=== PATIENT | female | born 1980 | race Caucasian/White ===

== ENCOUNTER 2016-12-01 22:05 | Emergency (ER) | payer MEDICAID ==
[~2016-12-01] VITALS: Ht 182.9 cm; Wt 68.0 kg
[~2016-12-01 22:05] MED LIST: ACETAMINOPHEN-O1 TAB PO; CLINDAMYCIN HC300 MG PO; DILAUDID4 MG PO; ESCITALOPRAM20 MG PO; FERROUS SULFAT200 M1 PO; GABAPENTIN800 MG PO; OMEPRAZOLE40 MG PO; OMNICEF 300 MG300 MG PO; PHARMASSURE1000 MCG PO; VALIUM 2MG TABLE2 MG PO; VENTOLIN H0.09 MG/Ac IH
[2016-12-01] MEDS ORDERED: PROMETHAZINE HC25 M1 PO (22:27)
--- NOTE | 2016-12-01 23:02 | Emergency Room Report ---
History of Present Illness Time Seen by [id number] Presenting Problem in Triage Pt arrived:Walked Presenting Problem:PT COMPLAINING OF VOMITTING. PT STATES THAT SHE IS WEAK AND CAN'T EAT. PT STATES SHE WAS SEEN AT ED ON 11/26/16 AND GIVEN PHENERGAN AND HAS BEEN TAKING IT. PT STATES SHE HAS NOT SEEN HER PCP SINCE SHE HAS BEEN IN ED. 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 N Clinical Suspician of Infection? N Mental Status: 1 - Regular (Normal Baseline) Sepsis Risk:Low Sepsis Risk Have you (or family members/close friends) recently traveled outside the [place]? N If Yes, where/when: Have you had exposure to infectious disease within the past month? N TB? Other? Specify: Source patient, RN notes reviewed, family, old records Exam Limitations no limitations Comment pt having unusual episodes of dizzyness and stagering at times mostly with mov and standing over the last few weeks - no chest pain or palpatations Cardiac Chest Pain Chest pain indicative of cardiac No Timing/Duration this evening Severity moderate ALLERGIES Coded Allergies: No Known Allergies (12/01/16) Home Medications Reported Medications Gabapentin (Gabapentin 800MG) 800 MG PO QID #120 TAB Diazepam (Valium 2MG) 0.5 MG PO BID PROMETHAZINE HCL (Promethazine 25mg Tab) 25 MG PO Q4HP PRN N/V Escitalopram Oxalate 20 MG PO DAILY #30 TAB History Medical History General CAD? No Angina: No MS: No Hypertension? No Hyperlipidemia? No CHF? No DVT? No PE? No COPD? No Asthma? Yes Anemia? Yes GERD? No Gastric ulcers? No GI Bleed? No Hernia? No Thyroid Problems? No Hypothyroidism? No CVA? No Seizures? No Diabetes? No Renal Insuffiency? No End Stage Renal Disease? No UTI? Yes Stones? No BPH? No GB Disease: No Nephritic Syndrome? No Asplenia? No Hepatitis? No Sickle Cell Disease? No Arthritis? No Migraines? Yes Cataracts? No Glaucoma? No MRSA? No HIV? No TB? No Anxiety? Yes Depression? Yes Cancer? No More? 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 Respiratory denies cough, denies shortness of breath, denies wheezing Cardiovascular denies chest pain, denies palpitations, denies syncope Gastrointestinal see HPI, denies abdominal pain, denies diarrhea, nausea, vomiting Genitourinary denies: dysuria, frequency, hesitancy, hematuria. Musculoskeletal denies back pain, denies joint pain, denies joint swelling, denies neck pain Skin denies rash Psychiatric/Neurological denies headache, denies seizure Physical Exam Vital Signs Vital Signs Date Time Temp Pulse Resp B/P Pulse O2 O2 Flow FiO2 Ox Delivery Rate 12/02 0000 102 97/49 12/02 0000 102 18 9749 98 12/01 2359 84 105/66 12/01 2358 73 120/75 12/01 2223 97.6 83 18 136/79 98 - WBC >12,000 or <4,000 or 10% bands? 2 or more SIRS Criteria Met? B/P:/49 MAP:98 Creatinine >2.0? UA output<0.5ml/kg/hr for 2 hrs? Platelet count >100,000? Lactate >2.0mmol/1? INR >1.2 or PTT > than 60 sec? Evidence of Organ Dysfunction? Provider documented clinical suspician of infection? N Sepsis Criteria Count: 0 Sepsis Risk: Low Sepsis Risk General Appearance no apparent distress Eye Exam - bilateral eye PERRL, bilateral eye EOMI Ear, Nose, Throat normal ENT inspection Neck supple Respiratory Status No: respiratory distress. Lung Sounds bilateral: lungs clear. 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 No Results/Orders Laboratory Tests 12/01/16 2330: Creatine Kinase 54, CK-MB (CK-2) Rel Index 0.9, CK and CKMB Interp < 0.5, Troponin I < 0.02 12/01/16 2330: Sodium 138, Potassium 4.0, Chloride 102, Carbon Dioxide 30, BUN 13, Creatinine 1.0, Estimated Creat Clear 85, Estimated GFR (MDRD) 63, Glucose 98, Calcium 8.8, Total Bilirubin 0.2, AST 18, ALT 33, Alkaline Phosphatase 84, Total Protein 7.7, Albumin 3.9, Globulin 3.8 H, Albumin/Globulin Ratio 1.0 L, Amylase 44, Lipase 144, WBC 5.8, RBC 3.90 L, Hgb 11.9 L, Hct 36.0 L, MCV 92.4, RDW 13.2, Plt Count 185, Gran % 51.7, Gran # 3.0, Lymphocytes % 42.3, Monocytes % 6.0, Lymphocytes # 2.5, Monocytes # 0.3, PUBS MCHC 33.1, MCH 30.5 12/01/160: WBC Cancelled, RBC Cancelled, Hgb Cancelled, Hct Cancelled, MCV Cancelled, RDW Cancelled, Plt Count Cancelled, Gran % Cancelled, Gran # Cancelled, Lymphocytes % Cancelled, Monocytes % Cancelled, Lymphocytes # Cancelled, Monocytes # Cancelled, PUBS MCHC Cancelled, MCH Cancelled Current Medication Orders Sig/Jesus Start time Last Medication Dose Route Stop Time Status Admin Ondansetron HCl 4 MG ONCE ONE 12/01 2344 DC 12/01 IV 12/01 2345 2340 Sodium Chloride 1,000 ML .Q1H1M 12/01 2314 DC 12/01 IV 12/02 0015 2340 Sodium Chloride 10 ML PRN PRN 12/01 2314 AC IV 12/02 2303 Sodium Chloride 10 ML PRN PRN 12/015 AC IV 12/02 231 Orders Procedure Date/time Status CBC WITH AUTO DIFF 12/01 2315 Complete IV SALINE LOCK 12/01 231 Active ORTHOSTATIC B/P 12/01 2303 Active CARDIAC ENZYMES 12/01 230 Complete LIPASE 12/01 224 Complete CHEM 12 PROFILE 12/01 2241 Complete AMYLASE 12/01 2241 Complete Departure Departure Time of Disposition 0115 Disposition DC Home or Self Care(routine) Clinical Impression Primary Impression: Vertigo Condition STABLE Referrals Michael Anne (Family) Patient Instructions DI for Dizziness-Nonvertigo Additional Instructions fluids and see pcp for follow up Discharge Counseling Counseled pt/family regarding diagnosis, test results, medications/RX, follow up needs Prescriptions Current Visit Scripts MECLIZINE HCL (ANTIVERT 25MG (generic)) 25 MG PO TID #10 TAB ED Critical [place] 0117
[2016-12-02 00:03] LABS: HEMOGLOBIN 11.9 g/dL (12.2-16.2)
[2016-12-02 00:04] LABS: LYMPH # 2.5 K/mm3 (0.7-4.5); LYMPH % 42.3 % (10-50.0)
[2016-12-02] MEDS ORDERED: MECLIZINE HYDRO25 M2 PO (01:17)
[2016-12-02 01:31] VITALS: BP 114/74
== END 2016-12-02 01:32 | disposition home or self-care (01) ==
LOC: ER 22:05
PROVIDERS: Emergency Medicine
DX: R42 Dizziness and giddiness (principal); J45.909 Unspecified asthma, uncomplicated; D64.9 Anemia, unspecified; F41.8 Other specified anxiety disorders; Z72.0 Tobacco use
CPT/HCPCS: J2405